=== PATIENT | male | born 1975 | race African-American/Black ===

== ENCOUNTER 2017-11-08 17:39 | Emergency (ER) | payer SELFPAY ==
--- NOTE | 2017-11-08 17:48 | PDOC ---
Rapid Medical Evaluation Time Seen by Provider: 11/08/17 17:44 Medical Evaluation: 11/08/17 17:44 I have performed a brief in-person evaluation of this patient. The patient presents with a chief complaint of: abd pain, rectal bleeding, bright red blood, "it painter" when i eat, pain to both abdomen and rectum, vomited 2 days ago, feels "winded", some dizziness, hx of cocaine use last use 4 months ago Pertinent physical exam findings: N/A I have ordered the following: labs, ekg The patient will proceed to the ED for further evaluation. Discharge Disposition - Diagnosis Rectal bleeding - Referrals - Patient Instructions - Post Discharge Activity
[2017-11-08 17:54] VITALS: BP 147/78; PULSE 80; TEMP 98.1; BMI 36.0
[2017-11-08 18:16] LABS: BASO % 0.2 % (0-2.0); EOS % 0.5 % (0-4.5); HEMATOCRIT 42.9 % (35.4-49); HEMOGLOBIN 14.6 GM/dL (11.7-16.9); LYMPH % 54.2 % (8-40); MCH 30.2 pg (25.7-33.7); MCHC 34.1 g/dl (32.0-35.9); MEAN CELL VOLUME 88.4 fl (80-96); MEAN PLT VOLUME 7.8 fl (7.5-11.1); MONO % 15.4 % (3.8-10.2); NEUT % 29.7 % (42.8-82.8); PLATELET COUNT 180 K/MM3 (134-434); RBC 4.85 M/mm3 (4.00-5.60); RDW 13.6 % (11.9-15.9); WHITE BLOOD COUNT 4.1 K/mm3 (4.0-10.0)
[2017-11-08 18:26] LABS: METHADONE, UR NEGATIVE ng/ml (CUTOFF=300); OPIATES, URI NEGATIVE ng/ml (CUTOFF=300); PHENCYCLIDINE,URINE NEGATIVE ng/ml (CUTOFF=25); URINE AMPHETAMINES NEGATIVE ng/ml (CUTOFF=500); URINE BARBITURATES NEGATIVE ng/ml (CUTOFF=200); URINE BENZODIAZEPINES NEGATIVE ng/ml (CUTOFF=200)
[2017-11-08 18:28] LABS: COCAINE, UR POSITIVE ng/ml (CUTOFF=300)
[2017-11-08 18:35] LABS: INR 0.95 (0.82-1.09); PROTHROMBIN TIME (PATIENT) 10.7 SEC (9.98-11.88)
--- NOTE | 2017-11-08 18:39 | PDOC ---
Attending Attestation - Resident Resident Name: Yemi Cedeño - ED Attending Attestation I have performed the following: I have examined & evaluated the patient, The case was reviewed & discussed with the resident, I agree w/resident's findings & plan, Exceptions are as noted - HPI HPI: 11/08/17 18:35 42 yo male p/w red blood on toilet paper WNWD 42 yo male in no acute distress head ncat lungs cta b.l cvs [id number] rectal exam no external hemorrhoids ext no e/c/c - Physicial Exam PE: 11/08/17 23:45 please see above physical exam - Medical Decision Making 11/08/17 21:06 ct scan abd/pel: mild diverticulitis plan antibiotics and follow up with GI
[2017-11-08] MEDS ORDERED: PANTOPRAZOLE 40 MG TABLET (FP) PO ONE (18:42)
--- NOTE | 2017-11-08 18:44 | PDOC ---
History of Present Illness - General Chief Complaint: Rectal Bleed Stated Complaint: FATIGUE Time Seen by Provider: 11/08/17 17:44 History Source: Patient Exam Limitations: No Limitations - History of Present Illness Initial Comments: 11/08/17 18:40 42M with no pmh presents with bright red blood on toilet paper when wiping after moving his bowels, no blood in stools per se but pain when stool is passing for the past few days. Complains of acid reflux more intense than usual recently, as well as fatigue. 11/08/17 18:43 No history of Hemorrhoids Past History - Past Medical History Home Medications: Ambulatory Orders NK [No Known Home Medication] 11/08/17 COPD: No Other medical history: obesity - Suicide/Smoking/Psychosocial Hx Smoking History: Current every day smoker Have you smoked in the past 12 months: Yes Number of Cigarettes Smoked Daily: 5 Information on smoking cessation initiated: No 'Breaking Loose' booklet given: 11/08/17 Hx Alcohol Use: Yes Drug/Substance Use Hx: No Substance Use Type: Cocaine Review of Systems - Review of Systems Able to Perform ROS?: Yes Is the patient limited Hungarian proficient: No Constitutional: Yes: See HPI HEENTM: No: Symptoms Reported Respiratory: No: Symptoms reported Cardiac (ROS): No: Symptoms Reported ABD/GI: Yes: See HPI : No: Symptoms Reported Musculoskeletal: No: Symptoms Reported Integumentary: No: Symptoms Reported Neurological: No: Symptoms reported All Other Systems: Reviewed and Negative *Physical Exam - Vital Signs Last Vital Signs Temp Pulse Resp BP Pulse Ox 98.1 F 80 20 147/78 100 11/08/17 17:51 11/08/17 17:51 11/08/17 17:51 11/08/17 17:51 11/08/17 17:51 - Physical Exam General Appearance: Yes: Nourished, Appropriately Dressed, Obese HEENT: positive: EOMI, REGINE, Normal ENT Inspection Respiratory/Chest: positive: Lungs Clear, Normal Breath Sounds. negative: Chest Tender, Respiratory Distress Cardiovascular: positive: Regular Rhythm, Regular Rate, S1, S2 Gastrointestinal/Abdominal: positive: Normal Bowel Sounds, Tender (epigastric and LLQ), Soft, Protuberent, Tenderness Rectal Exam: positive: normal exam, normal rectal tone. negative: hemorrhoids Extremity: positive: Normal Capillary Refill, Normal Inspection, Normal Range of Motion Integumentary: positive: Normal Color, Dry, Warm Neurologic: positive: Fully Oriented, Alert, Normal Mood/Affect ED Treatment Course - LABORATORY CBC & Chemistry Diagram: 11/08/17 18:06 11/08/17 18:05 - ADDITIONAL ORDERS Additional order review: Laboratory Results 11/08/17 18:06 Opiates Screen Negative Methadone Screen Negative Barbiturate Screen Negative Phencyclidine Screen Negative Ur Amphetamines Screen Negative MDMA (Ecstasy) Screen Negative Benzodiazepines Screen Negative Cocaine Screen Positive U Marijuana (THC) Screen Negative 11/08/17 18:06 RBC 4.85 MCV 88.4 MCHC 34.1 RDW 13.6 MPV 7.8 Neutrophils % 29.7 L Lymphocytes % 54.2 H Monocytes % 15.4 H Eosinophils % 0.5 Basophils % 0.2 Medical Decision Making - Medical Decision Making 11/08/17 18:44 basic labs negative. No hemorrhoids or anal fissure appreciated. 11/08/17 18:47 Given Protonix Will r/o diverticulitis with CT abdomen w/ contrast 11/08/17 18:48 *DC/Admit/Observation/Transfer Diagnosis at time of Disposition: Rectal bleeding - Referrals - Patient Instructions - Post Discharge Activity
[2017-11-08] MEDS ORDERED: SODIUM CHLORIDE 1,000 ML IV STA (18:45)
[2017-11-08 18:49] LABS: ALBUMIN 3.7 g/dl (3.4-5.0); ANION GAP 7 (8-16); BILIRUBIN,TOTAL 0.4 mg/dL (0.2-1.0); BLOOD UREA NITROGEN 10 mg/dL (7-18); CALCIUM 8.2 mg/dL (8.5-10.1); CHLORIDE 105 mmol/L (98-107); CO2 28 mmol/L (21-32); CREATININE 0.9 mg/dL (0.7-1.3); GLUCOSE,RANDOM 90 mg/dL (74-106); POTASSIUM 4.1 mmol/L (3.5-5.1); SGOT/AST 63 U/L (15-37); SGPT/ALT 84 U/L (12-78); SODIUM 140 mmol/L (136-145); TOT PROT 7.4 g/dl (6.4-8.2)
[2017-11-08 18:51] LABS: ALK PHOS 71 U/L (45-117)
[2017-11-08] MEDS ORDERED: metroNIDAZOLE 500 MG TABLET PO ONE (20:59)
--- NOTE | 2017-11-08 21:03 | PDOC ---
*Physical Exam - Vital Signs Last Vital Signs Temp Pulse Resp BP Pulse Ox 98.1 F 80 20 147/78 100 11/08/17 17:51 11/08/17 17:51 11/08/17 17:51 11/08/17 17:51 11/08/17 17:51 - Physical Exam Comments: 11/08/17 21:46 General Appearance: Nourished. No Apparent Distress HEENT: EOMI, REGINE. No Pharyngeal Erythema, Tonsillar Exudate, Tonsillar Erythema Neck: No Cervical Lymphadenopathy Respiratory/Chest: Lungs Clear, Normal Breath Sounds. No Crackles, Rales, Rhonchi, Wheezing Cardiovascular: Regular Rhythm, Regular Rate. No Murmur, Gallops, Rubs Gastrointestinal/Abdominal: Normal Bowel Sounds, Soft. Mild epigastric tenderness to palpation. Mild tenderness to palpation in the LLQ. No Guarding, Rebound, Musculoskeletal: No CVA Tenderness Extremity: Normal Capillary Refill Integumentary: Normal Color, Dry, Warm Neurologic: Fully Oriented, Alert, Normal Mood/Affect, Normal Response, ED Treatment Course - LABORATORY CBC & Chemistry Diagram: 11/08/17 18:06 11/08/17 18:05 - ADDITIONAL ORDERS Additional order review: Laboratory Results 11/08/17 11/08/17 11/08/17 18:06 18:06 18:06 PT with INR INR Sodium Potassium Chloride Carbon Dioxide Anion Gap BUN Creatinine Creat Clearance w eGFR Random Glucose Calcium Total Bilirubin AST ALT Alkaline Phosphatase Creatine Kinase Creatine Kinase Index CK-MB (CK-2) Troponin I Total Protein Albumin Lipase 130 Opiates Screen Negative Methadone Screen Negative Barbiturate Screen Negative Phencyclidine Screen Negative Ur Amphetamines Screen Negative MDMA (Ecstasy) Screen Negative Benzodiazepines Screen Negative Cocaine Screen Positive U Marijuana (THC) Screen Negative Blood Type O POSITIVE Antibody Screen Negative 11/08/17 11/08/17 18:05 18:05 PT with INR 10.70 INR 0.95 Sodium 140 Potassium 4.1 Chloride 105 Carbon Dioxide 28 Anion Gap 7 L BUN 10 Creatinine 0.9 Creat Clearance w eGFR > 60 Random Glucose 90 Calcium 8.2 L Total Bilirubin 0.4 AST 63 H ALT 84 H Alkaline Phosphatase 71 Creatine Kinase 340 H Creatine Kinase Index 0.2 CK-MB (CK-2) < 1.000 Troponin I < 0.02 Total Protein 7.4 Albumin 3.7 Lipase Opiates Screen Methadone Screen Barbiturate Screen Phencyclidine Screen Ur Amphetamines Screen MDMA (Ecstasy) Screen Benzodiazepines Screen Cocaine Screen U Marijuana (THC) Screen Blood Type Antibody Screen 11/08/17 18:06 RBC 4.85 MCV 88.4 MCHC 34.1 RDW 13.6 MPV 7.8 Neutrophils % 29.7 L Lymphocytes % 54.2 H Monocytes % 15.4 H Eosinophils % 0.5 Basophils % 0.2 - RADIOLOGY Radiology Studies Ordered: Category Date Time Status ABDOMEN & PELVIS CT WITH CONTR [CT] Stat CT Scan 11/08/17 19:20 Completed - Medications Given in the ED: ED Medications Discontinued Medications Generic Name Dose Route Start Last Admin Trade Name Freq PRN Reason Stop Dose Admin Sodium Chloride 1,000 mls @ 1,000 mls/hr 11/08/17 18:45 11/08/17 19:01 Normal Saline - IV 11/08/17 19:44 1,000 mls/hr ASDIR STA Administration Pantoprazole Sodium 40 mg 11/08/17 18:42 11/08/17 18:46 Protonix - PO 11/08/17 18:43 40 mg ONCE ONE Administration Progress Note - Progress Note Progress Note: The patient is a 42 year old male with no significant PMH who presents for evaluation of blood in his stools. Lab results are normal thus far. The patient is pending a abdomen pelvis CT to evaluate for diverticulitis. Medical Decision Making - Medical Decision Making 11/08/17 21:[address] demonstrates concerns for mild diverticulitis as read by our radiologist. We are comfortable discharging the patient home on levaquin and flagyl with GI follow up. We discussed the results and the plan with the patient who voiced understanding and is agreeable with the plan. *DC/Admit/Observation/Transfer Diagnosis at time of Disposition: Rectal bleeding, Diverticulitis - Discharge Dispostion Disposition: HOME Condition at time of disposition: Good Admit: No - Prescriptions Prescriptions: levoFLOXacin [Levaquin] 750 mg PO DAILY #7 tab metroNIDAZOLE [Flagyl -] 500 mg PO TID #21 tablet - Referrals Referrals: Donnell Mark MD [Staff Physician] - Sriram Mojica MD [Staff Physician] - - Patient Instructions Printed Discharge Instructions: DI for Diverticulitis Additional Instructions: Please return to the ER if you experience concerning or worsening symptoms including worsening pain, fevers, or vomiting. Your CT scan results show concerns for earlier mild diverticulitis. We have sent a prescription for antibiotics to your pharmacy. You should take the levaquin once a day for 7 days and the Flagyl three times a day for 7 days. Please call to schedule a follow up appointment with your primary care provider and a GI specialist (Dr. Mojica at [phone]) within 1 week to discuss further management of your symptoms. - Post Discharge Activity
--- NOTE | 2017-11-09 12:58 | EKG ---
Test Reason : Blood Pressure : / mmHG Vent. Rate : 073 BPM Atrial Rate : 073 BPM P-R Int : 204 ms QRS Dur : 100 ms QT Int : 398 ms P-R-T Axes : 050 031 020 degrees QTc Int : 438 ms NORMAL SINUS RHYTHM NORMAL ECG NO PREVIOUS ECGS AVAILABLE Confirmed by Yovani Prescott MD ([id number]) on 11/09/2017 12:57:55 PM Referred By: Confirmed By:Yovani Prescott MD
== END 2017-11-08 22:33 | disposition home or self-care (01) ==
LOC: JER 17:39
PROC: 3E0337Z Introduction of Electrolytic and Water Balance Substance into Peripheral Vein, Percutaneous Approach (ICD-10-PCS; principal; 2017-11-08)
PROC: 3E03329 Introduction of Other Anti-infective into Peripheral Vein, Percutaneous Approach (ICD-10-PCS; 2017-11-08)
DX: K57.32 Diverticulitis of large intestine without perforation or abscess without bleeding (principal); K62.5 Hemorrhage of anus and rectum
CPT/HCPCS: 36415; 74177-TC; 80053; 80307; 82550; 82553; 83690; 84484; 85025; 85610; 86850; 86900; 86901; 93005; 93010; 99283-25

== ENCOUNTER 2018-10-25 10:32 | Emergency (ER) | payer OTHER ==
--- NOTE | 2018-10-25 12:08 | PDOC ---
History of Present Illness - General Chief Complaint: Cold Symptoms Stated Complaint: SORE THROAT Time Seen by Provider: 10/25/18 11:55 - History of Present Illness Initial Comments: 10/25/18 12:02 42-year-old male without comorbidities presents for evaluation of sore throat and cough chills and night sweats subjectively at home fever, 3 days Past History - Past Medical History Allergies/Adverse Reactions: Allergies Allergy/AdvReac Type Severity Reaction Status Date / Time No Known Allergies Allergy Verified 10/25/18 10:54 COPD: No - Suicide/Smoking/Psychosocial Hx Smoking History: Current some day smoker Have you smoked in the past 12 months: Yes Number of Cigarettes Smoked Daily: 2 Information on smoking cessation initiated: Yes 'Breaking Loose' booklet given: 11/08/17 Hx Alcohol Use: Yes Drug/Substance Use Hx: No Substance Use Type: Cocaine Review of Systems - Review of Systems Constitutional: Yes: Chills, Malaise, Night Sweats HEENTM: Yes: Throat Pain *Physical Exam - Vital Signs Last Vital Signs Temp Pulse Resp BP Pulse Ox 98.5 F 76 18 137/86 97 10/25/18 10:54 10/25/18 10:54 10/25/18 10:54 10/25/18 10:54 10/25/18 10:54 - Physical Exam Comments: 10/25/18 12:08 HEAD: NC/AT EYES: Conjuntiva clear Ears: Canals and TM's normal NOSE: No d/c THROAT: Moist mucous membrances, oral erythematous, uvula midline NECK: Supple without adenopathy CARDIAC: S1 S2 LUNGS: Clear but decreased at the bases ABDOMEN: Soft NT ND MS: Full ROM in all joints without edema NEUROLOGIC: No gross sensory or motor deficits, NVID SKIN: Normal color and temperature no lesions or rashes Moderate Sedation - Procedure Monitoring Vital Signs: Procedure Monitoring Vital Signs Temperature 98.5 F 10/25/18 10:54 Pulse Rate 76 10/25/18 10:54 Respiratory Rate 18 10/25/18 10:54 Blood Pressure 137/86 10/25/18 10:54 O2 Sat by Pulse Oximetry (%) 97 10/25/18 10:54 Medical Decision Making - Medical Decision Making 10/25/18 12:24 cxr clear *DC/Admit/Observation/Transfer Diagnosis at time of Disposition: Strep pharyngitis - Discharge Dispostion Disposition: HOME Condition at time of disposition: Stable Decision to Admit order: No - Referrals - Patient Instructions Printed Discharge Instructions: Strep Throat, DI for Strep Throat Additional Instructions: He was treated in the emergency room for strep throat. The treatment consisted of one injection of an antibiotic. He do not require further medication. You are also given a dose of the steroid which should help her throat pain. Do not take any anti-inflammatory such as Advil Motrin Aleve or ibuprofen. If you need additional medication for pain he may take Tylenol as directed. Warm salt water gargles 5-6 times a day will help her throat pain as well. Follow-up with her primary care physician in one to 2 days for further evaluation and treatment options and return to the emergency room should symptoms worsen or go unresolved. - Post Discharge Activity
[2018-10-25 12:17] VITALS: BP 137/86; PULSE 76; TEMP 98.5; BMI 37.1
[2018-10-25] MEDS ORDERED: PENICILLIN G BENZATHINE 1,200,000 UNIT/2 ML PFS IM ONE (12:22)
[2018-10-25] MEDS ORDERED: DEXAMETHASONE LIQUID 0.5 MG/5 ML 240 ML BULK BOTTLE PO ONE (12:22)
[2018-10-25] MEDS ORDERED: DEXAMETHASONE SOD PHOSPHATE 10 MG/1 ML VIAL ONE (12:28)
[2018-10-25] MEDS ORDERED: PENICILLIN G BENZATHINE 2,400,000 UNIT/4 ML PFS ONE (12:29)
== END 2018-10-25 12:40 | disposition home or self-care (01) ==
LOC: JERFT 10:32
DX: J02.0 Streptococcal pharyngitis (principal); B95.0 Streptococcus, group A, as the cause of diseases classified elsewhere
CPT/HCPCS: 71046-TC-FY; 87880; 96372; 99281-25

== ENCOUNTER 2023-09-10 18:16 | Emergency (ER) | payer OTHER ==
[2023-09-10 18:36] VITALS: RESP 18; BMI 39.5
[2023-09-10] MEDS ORDERED: ACETAMINOPHEN 1000 MG/100 ML BAG IVPB ONE (19:03)
[2023-09-10] MEDS ORDERED: SODIUM CHLORIDE 1,000 ML IV STA (19:03)
[2023-09-10] MEDS ORDERED: ACETAMINOPHEN INJECTION 100 ML IVPB ONE (19:22)
[2023-09-10 19:32] LABS: BASO % 0.5 % (0-2.0); EOS % 1.7 % (0-4.5); HEMATOCRIT 44.1 % (35.4-49); HEMOGLOBIN 15.1 GM/dL (11.7-16.9); LYMPH % 50.9 % (8-40); MCH 30.4 pg (25.7-33.7); MCHC 34.3 g/dl (32.0-35.9); MEAN CELL VOLUME 88.8 fl (80-96); MEAN PLT VOLUME 7.7 fl (7.5-11.1); MONO % 7.1 % (3.8-10.2); NEUT % 39.8 % (42.8-82.8); PLATELET COUNT 278 10^3/uL (134-434); RBC 4.97 M/mm3 (4.00-5.60); WHITE BLOOD COUNT 6.8 K/mm3 (4.0-10.0)
[2023-09-10 19:42] LABS: INR 1.1 (0.83-1.09); PROTHROMBIN TIME (PATIENT) 12.8 SEC (9.7-13.0)
[2023-09-10 19:45] LABS: ACTIVATED PTT 32.9 SECONDS (25.2-36.5)
[2023-09-10 20:14] LABS: POTASSIUM 4.6 mmol/L (3.5-5.1)
[2023-09-10 20:18] LABS: ALBUMIN 4.2 g/dl (3.4-5.0); CALCIUM 9.9 mg/dL (8.5-10.1); MAGNESIUM 2.2 mg/dL (1.8-2.4)
[2023-09-10 20:20] LABS: BLOOD UREA NITROGEN 16.2 mg/dL (7-18)
[2023-09-10 20:21] LABS: CREATININE 0.9 mg/dL (0.55-1.3)
[2023-09-10 20:23] LABS: BILIRUBIN,TOTAL 0.6 mg/dL (0.2-1); TOT PROT 8.1 g/dl (6.4-8.2)
[2023-09-10 21:00] VITALS: BP 118/77; PULSE 67; TEMP 98.1
== END 2023-09-11 00:18 | disposition home or self-care (01) ==
LOC: JER 18:16
PROC: 3E033NZ Introduction of Analgesics, Hypnotics, Sedatives into Peripheral Vein, Percutaneous Approach (ICD-10-PCS; principal; 2023-09-10)
PROC: 3E0337Z Introduction of Electrolytic and Water Balance Substance into Peripheral Vein, Percutaneous Approach (ICD-10-PCS; 2023-09-10)
DX: R07.9 Chest pain, unspecified (principal); R42 Dizziness and giddiness; I10 Essential (primary) hypertension; R19.7 Diarrhea, unspecified; R50.9 Fever, unspecified; Z20.822 Contact with and (suspected) exposure to COVID-19
CPT/HCPCS: 0241U-QW; 36415; 70450-TC; 71046-TC-FY; 80053; 83735; 84484; 85025; 85610; 85730; 93005; 93010; 99285-25

== ENCOUNTER 2024-04-06 11:11 | Emergency (ER) | payer OTHER ==
[2024-04-06 11:33] VITALS: BP 120/86; PULSE 73; RESP 18; TEMP 98.3; BMI 36.5
[2024-04-06] MEDS ORDERED: ACETAMINOPHEN 1000 MG/100 ML BAG IVPB ONE (12:10)
[2024-04-06 12:58] LABS: BASO % 0.2 % (0-2.0); EOS % 3.5 % (0-4.5); HEMATOCRIT 43.7 % (35.4-49); LYMPH % 38.3 % (8-40); MCH 30.5 pg (25.7-33.7); MCHC 34.4 g/dl (32.0-35.9); MEAN CELL VOLUME 88.8 fl (80-96); MEAN PLT VOLUME 7.3 fl (7.5-11.1); PLATELET COUNT 230 10^3/uL (134-434); RBC 4.92 M/mm3 (4.00-5.60); RDW 13.6 % (11.9-15.9); WHITE BLOOD COUNT 6.2 K/mm3 (4.0-10.0)
[2024-04-06 13:01] LABS: EPI CELLS 1 /uL (0-25.1); HYALINE CASTS 0 /uL (0-3.1); PH,URINE 5.5 (5.0-8.0); URINE APPEARANCE CLEAR; URINE BACTERIA 1 /uL (0-1359); URINE BILIRUBIN NEGATIVE (NEGATIVE); URINE COLOR YELLOW; URINE GLUCOSE (UA) NEGATIVE (NEGATIVE); URINE KETONE NEGATIVE (NEGATIVE); URINE LEUK ESTERASE NEGATIVE (NEGATIVE); URINE NITRITE NEGATIVE (NEGATIVE); URINE PROTEIN NEGATIVE (NEGATIVE); URINE RBC 7 /uL (0-23.9); URINE UROBILINOGEN 0.2 mg/dL (0.2-1.0); URINE WBC 4 /uL (0-25.8)
[2024-04-06 13:25] LABS: POTASSIUM 4.3 mmol/L (3.5-5.1)
[2024-04-06 13:27] LABS: CALCIUM 9.6 mg/dL (8.5-10.1)
[2024-04-06 13:28] LABS: ALBUMIN 3.7 g/dl (3.4-5.0); BLOOD UREA NITROGEN 14.9 mg/dL (7-18)
[2024-04-06 13:31] LABS: CREATININE 0.8 mg/dL (0.55-1.3)
[2024-04-06 13:33] LABS: BILIRUBIN,TOTAL 0.7 mg/dL (0.2-1); TOT PROT 7.3 g/dl (6.4-8.2)
== END 2024-04-06 16:30 | disposition home or self-care (01) ==
LOC: JER 11:11
DX: R10.9 Unspecified abdominal pain (principal); R31.9 Hematuria, unspecified
CPT/HCPCS: 36415; 74177-TC; 80053; 81003; 85025; 87086; 87491; 87591; 99285-25; Q9967